=== PATIENT | female | born 1970 | race Caucasian/White ===

== ENCOUNTER 2017-12-06 10:16 | Emergency (ER) | payer SELFPAY ==
--- NOTE | 2017-12-06 12:24 | ED Physician Documentation ---
PD HPI BACK PAIN - Stated complaint Stated Complaint: BACK PX - Chief complaint Chief Complaint: Back Pain - History obtained from History obtained from: Patient - History of Present Illness Timing - onset: How many days ago (few) Timing - duration: Days (few) Timing - details: Abrupt onset (noted upon trying to get out of bed. No particular injury but has been lifting and playing with grandchild, which is unusual activity (she is visiting from [place], so new bed,etc as well).), Still present Location: Lower, Right Associated symptoms: No: Weakness, Numbness, Incontinent of urine Improves with: Rest Worsened by: Lifting Contributing factors: Lifting Similar symptoms before: No diagnosis (recurrent low back pain and sciatica at times. Denies chronic meds.) Recently seen: Not recently seen Review of Systems Constitutional: denies: Fever, Chills : denies: Incontinent Skin: denies: Rash, Lesions Neurologic: denies: Focal weakness, Numbness PD PAST MEDICAL HISTORY - Past Medical History Past Medical History: No - Past Surgical History Past Surgical History: Yes /[employer]ERSON: section - Present Medications Home Medications: Ambulatory Orders Medication Instructions Recorded Confirmed Dexamethasone [Decadron] 4 mg PO DAILY #5 tablet 12/06/17 HYDROcod/ACETAM 5/325 [[place] 5/325] 1 tab PO Q6H PRN #20 tablet 12/06/17 Methocarbamol [Robaxin] 500 mg PO Q6H PRN #25 tablet 12/06/17 - Allergies Allergies/Adverse Reactions: Allergies Allergy/AdvReac Type Severity Reaction Status Date / Time No Known Drug Allergies Allergy Verified 12/06/17 10:54 - Social History Does the pt smoke?: Yes Smoking Status: Current every day smoker Does the pt drink ETOH?: No Does the pt have substance abuse?: No - Immunizations Immunizations are current?: No Immunizations: TDAP >10years/unknown, Other immun current PD ED PE NORMAL - Vitals Vital signs reviewed: Yes - General General: Alert and oriented X 3, No acute distress, Well developed/nourished - HEENT HEENT: Pharynx benign - Neck Neck: Supple, no meningeal sign, No adenopathy - Cardiac Cardiac: RRR, No murmur - Respiratory Respiratory: Clear bilaterally - Abdomen Abdomen: Soft, Non tender - Back Back: No CVA TTP, No spinal TTP, Other (tender in lateral lumbar muscles without rash nor redness. ) - Derm Derm: Normal color, Warm and dry, No rash - Neuro Neuro: No motor deficit, No sensory deficit, Other (normal reflexes in knees. ) - Psych Psych: Normal mood, Normal affect Results - Vitals Vitals: Vital Signs - 24 hr 12/06/17 12/06/17 10:49 12:58 Temperature 36.0 C L 36.5 C Heart Rate 80 85 Respiratory 18 20 Rate Blood Pressure 145/85 H 147/85 H O2 Saturation 98 99 Oxygen O2 Source Room air PD MEDICAL DECISION MAKING - ED course Complexity details: considered differential (low back pain without red flags. ) , d/w patient Departure - Departure Disposition: 01 Home, Self Care Clinical Impression: Muscle pain, lumbar Condition: Stable Record reviewed to determine appropriate education?: Yes Instructions: ED Spasm Back No Trauma Prescriptions: Dexamethasone [Decadron] 4 mg PO DAILY #5 tablet HYDROcod/ACETAM 5/325 [[place] 5/325] 1 tab PO Q6H PRN #20 tablet PRN Reason: Pain Methocarbamol [Robaxin] 500 mg PO Q6H PRN #25 tablet PRN Reason: Spasms Comments: Heat and gentle stretching for the low back to decrease stiffness and spasms. He can continue a little bit of ibuprofen a couple times a day but not to push the dose is too high so does not bother her stomach. Add Decadron which is another type of anti-inflammatory daily for 5 more days. Robaxin muscle relaxant for stiffness and spasms. Add Tylenol or hydrocodone if needed for worse pain. Recheck if not improving over the next week or so. Low back pain episodes are common and often will take days to a couple of weeks to improve and sometimes even a little longer. Discharge Date/Time: 12/06/17 13:10
[2017-12-06] MEDS ORDERED: METHOCARBAMOL 500 MG TABLET PO STA (12:46)
[2017-12-06] MEDS ORDERED: DEXAMETHASONE 10 MG/ML VIAL PO STA (12:46)
[2017-12-06] MEDS ORDERED: HYDROcod/ACETAM 5/325 MG TABLET PO STA (12:46)
[2017-12-06 12:58] VITALS: BP 147/85
[2017-12-06] MEDS ORDERED: CHERRY SYRUP 10 ML UDC PO ONE (13:00)
== END 2017-12-06 13:10 | disposition home or self-care (01) ==
LOC: ED 10:16
DX: M54.5 Low back pain (principal); F17.200 Nicotine dependence, unspecified, uncomplicated
CPT/HCPCS: 99283; A9270